=== PATIENT | male | born 1995 | race Caucasian/White ===

== ENCOUNTER 2019-02-14 19:07 | Emergency (ER) | payer OTHER ==
[2019-02-14] MEDS ORDERED: Ibuprofen 800 MG Tab PO ONE (19:35)
--- NOTE | 2019-02-14 19:39 | EDM.PDOC ---
ED HPI GENERAL MEDICAL PROBLEM - General Chief Complaint: Lower Extremity Injury/Pain Stated Complaint: KNEE Time Seen by Provider: 02/14/19 19:27 - History of Present Illness INITIAL COMMENTS - FREE TEXT/NARRATIVE: HISTORY AND PHYSICAL: History of present illness: Patient is a healthy 23-year-old male who presents with a history of his knees bilaterally getting sore with different types of activities but has never had any diagnosed problem and who says that his left knee moved funny when he was at work today just walking fast. Patient did not fall to the ground striking the area but said that he was walking fast and he felt like his left knee rotated medially and it feels not at his baseline. He has no left distal ankle or foot pain and no proximal hip pain and points to the medial aspect of his knee as the area of discomfort. He says it feels like going to give out but it did not hyperextend. He did not fall to the ground and prior to these events he was in his usual state of good health. He has not noticed any major swelling. Review of systems: As per history of present illness and below otherwise all systems reviewed and negative. Past medical history: As per history of present illness and as reviewed below otherwise noncontributory. Surgical history: As per history of present illness and as reviewed below otherwise noncontributory. Social history: No reported history of drug or alcohol abuse. Family history: As per history of present illness and as reviewed below otherwise noncontributory. Physical exam: HEENT: Atraumatic, normocephalic, , negative for conjunctival pallor or scleral icterus, mucous membranes moist, throat clear, neck supple, nontender, trachea midline. Lungs: Clear to auscultation, breath sounds equal bilaterally, chest nontender. Heart: S1S2, regular rate and rhythm no overt murmurs Abdomen: Soft, nondistended, nontender. NABS Pelvis: Stable nontender. No lateral hip tenderness on the left Genitourinary: Deferred. Rectal: Deferred. Extremities: Atraumatic, and full range of motion of all extremities including the left knee there is a small amount of joint effusion appreciated but no warmth or erythema and the bony architecture and alignment appears to be intact at the left knee. There is some tenderness at the medial aspect of the knee. On stress the ACL seems to be intact and there is some ligamentous laxity on stress of the medial collateral which is slightly greater than the contralateral right side. The legs are negative for cords or calf pain. Neurovascular unremarkable. Neuro: Awake, alert, oriented. Cranial nerves II through XII unremarkable. Cerebellum unremarkable. Motor and sensory unremarkable throughout. Exam nonfocal. Diagnostics: [Left knee x-ray Therapeutics: Motrin, crutches, neoprene sling Impression: Left knee injury Definitive disposition and diagnosis as appropriate pending reevaluation and review of above. Left Knee Pain Score (Numeric/FACES): 2 - Related Data Allergies Allergy/AdvReac Type Severity Reaction Status Date / Time No Known Allergies Allergy Verified 02/14/19 19:21 Home Meds: Home Meds . [No Known Home Meds] 02/14/19 [History] Past Medical History - Past Health History Medical/Surgical History: Denies Medical/Surgical History Social & Family History - Tobacco Use Smoking Status *Q: Current Every Day Smoker Years of Tobacco use: 10 Packs/Tins Daily: 0.5 - Recreational Drug Use Recreational Drug Use: No Review of Systems - Review of Systems Review Of Systems: ROS reveals no pertinent complaints other than HPI. ED EXAM, GENERAL - Physical Exam Exam: See Below (See dictation) Course - Vital Signs Last Recorded V/S: Last Vital Signs Temp 36.4 C 02/14/19 19:18 Pulse 68 02/14/19 19:18 Resp BP 113/65 02/14/19 19:18 Pulse Ox 97 02/14/19 19:18 - Orders/Labs/Meds Orders: Active Orders 24 hr Category Date Time Status DME for Discharge [COMM] Stat Oth 02/14/19 20:07 Ordered Meds: Medications Discontinued Medications Generic Name Dose Route Start Last Admin Trade Name Freq PRN Reason Stop Dose Admin Ibuprofen 800 mg 02/14/19 19:35 02/14/19 19:43 Motrin PO 02/14/19 19:36 800 mg ONETIME ONE Administration Departure - Departure Time of Disposition: 20:08 Disposition: Home, Self-Care 01 Condition: Good Clinical Impression: Left knee injury Qualifiers: Encounter type: initial encounter Qualified Code(s): S89.92XA - Unspecified injury of left lower leg, initial encounter - Discharge Information Forms: ED Department Discharge Additional Instructions: The following information is given to patients seen in the emergency department who are being discharged to home. This information is to outline your options for follow-up care. We provide all patients seen in our emergency department with a follow-up referral. The need for follow-up, as well as the timing and circumstances, are variable depending upon the specifics of your emergency department visit. If you don't have a primary care physician on staff, we will provide you with a referral. We always advise you to contact your personal physician following an emergency department visit to inform them of the circumstance of the visit and for follow-up with them and/or the need for any referrals to a consulting specialist. The emergency department will also refer you to a specialist when appropriate. This referral assures that you have the opportunity for followup care with a specialist. All of these measure are taken in an effort to provide you with optimal care, which includes your followup. Under all circumstances we always encourage you to contact your private physician who remains a resource for coordinating your care. When calling for followup care, please make the office aware that this follow-up is from your recent emergency room visit. If for any reason you are refused follow-up, please contact the [facility] emergency department at and ask to speak to the emergency department charge nurse. [facility]--Orthopedic clinic Professional [address] [address] Ice and elevate the area as much as possible and do not weight-bear and to you' re followed up with the orthopedics clinic. Please call the morning and schedule a follow-up appointment using resources given to above. Use over-the- counter ibuprofen/Motrin for pain and you may add Tylenol as you need. Wear the sling you have been given here at all times or use the sling that you have at home at all times but remove at sleep times. Return to ER as needed and as discussed - My Orders Last 24 Hours: My Active Orders 02/14/19 20:07 DME for Discharge [COMM] Stat - Assessment/Plan Last 24 Hours: My Active Orders 02/14/19 20:07 DME for Discharge [COMM] Stat
--- NOTE | 2019-02-14 20:05 | CR ---
INDICATION: pain LEFT KNEE No fracture, dislocation, or destructive lesion of bone is seen. No significant arthritic changes or soft tissue abnormalities are identified. IMPRESSION: Negative left knee radiographs. JAS TABARES MD [facility] Dictated by: Robert Tabares MD @ 02/14/2019 20:04:46 (Electronically Signed)
== END 2019-02-14 20:23 | disposition home or self-care (01) ==
LOC: MW.ED 19:07
DX: S89.92XA Unspecified injury of left lower leg, initial encounter (principal); F17.210 Nicotine dependence, cigarettes, uncomplicated; Y99.0 Civilian activity done for income or pay; X50.9XXA Other and unspecified overexertion or strenuous movements or postures, initial encounter
CPT/HCPCS: 73562; 99283; A9270